=== PATIENT | female | born 1935 | race Caucasian/White ===

== ENCOUNTER 2024-12-24 10:00 | Emergency (ER) | payer MEDICARE ==
[~2024-12-24] VITALS: Ht 167.6 cm; Wt 63.5 kg
[2024-12-24 10:11] VITALS: BP 174/82
[2024-12-24] MEDS ORDERED: Diph, Acellular Pertussis, Tet 0.5 ML/VIAL (Tdap) SDV IM ONE (10:15)
[2024-12-24 10:17] VITALS: BP 129/89
[2024-12-24 10:30] VITALS: BP 142/59
[2024-12-24 10:46] VITALS: BP 161/60
[2024-12-24] MEDS ORDERED: CEPHALEXIN500 MG PO (10:48)
== END 2024-12-24 11:16 | disposition home or self-care (01) ==
LOC: ED 10:00
DX: S81.811A Laceration without foreign body, right lower leg, initial encounter (principal); I10 Essential (primary) hypertension; X58.XXXA Exposure to other specified factors, initial encounter
CPT/HCPCS: 90715